=== PATIENT | male | born 1995 | race Hispanic/Latino ===

== ENCOUNTER 2019-06-09 08:56 | Emergency (ER) | payer SELFPAY ==
[2019-06-09] MEDS ORDERED: Ondansetron PF 4 MG/2 ML Vial ONE ×2 (09:15→13:09)
[2019-06-09] MEDS ORDERED: Morphine 4 MG/ML VIAL ONE (09:15)
[2019-06-09 10:35] LABS: Bilirubin Negative (Negative); Blood, Urine 3+ (Negative); Clarity Clear (Clear); Glucose, Urine (Dipstick) Normal (Negative); Leukocyte Negative Leu/uL (Negative); Nitrite Negative (Negative); Protein, Urine (Dipstick) 20 mg/dL (Neg-Trace); RBC/HPF Greater than 50 HPF (0-3); Squamous Epithelial 0-3 HPF (0-3); Urobilinogen Normal mg/dL (Less than 2)
--- NOTE | 2019-06-09 10:38 | CT ---
CT ABDOMEN WITHOUT CONTRAST; CT PELVIS WITHOUT CONTRAST: HISTORY: Right flank pain, radiating to the testicle. COMPARISON: None. FINDINGS: ABDOMEN Lung bases: Clear. Heart size: Normal heart size. No significant pericardial fluid. Aorta: Normal caliber. No periaortic fat stranding. Solid organs: Limited evaluation by the lack of IV contrast. Grossly no solid organ abnormality. Lymph nodes: No gastrohepatic, retrocrural or periportal lymphadenopathy. Gallbladder: Unremarkable. Mesentery: No mass, lymphadenopathy, free air or free fluid. Kidneys: Punctate, nonobstructing calculi in the right upper pole intrarenal collecting system, measu ring 1 to 2 mm. Mild dilatation of the right intrarenal collecting system and extrarenal collecting system with mild periureteral fat stranding. No evidence of an obstructing calculus. Correlate for a recently passed calculus. With regard to the left kidney, no evidence of obstructive uropathy. Alimentary canal: Limited evaluation by the lack of oral contrast. Multiple normal caliber small antoine l loops. Unremarkable ileocecal junction. Scattered fecal material in a nondistended, nondilated colon. Normal caliber appendix. PELVIS No mass, adenopathy, free air or free fluid. Unremarkable prostate gland. Urinary bladder: Questionable punctate calculus in the urinary bladder. Osseous structures: No lytic or blastic lesions. IMPRESSION: 1. Nonobstructing, 1 to 2 mm calculi in the right upper pole intrarenal collecting system. 2. Mild right-sided hydronephrosis and hydroureter without associated obstructing calculus. Correlate for a recently passed stone. Questionable 1 mm calculus in the posterior right urinary bladder (image 83, series 601). Transcribed Date/Time: 06/09/2019 10:49 AM
[2019-06-09 10:46] LABS: Bacteria/HPF 1+ HPF (None Seen); Yeast-Budding 1+ HPF (None Seen)
[2019-06-09 11:57] LABS: #Eosinphils 0.1 thou/uL (0.0-0.7); #Lymphocytes 1.2 thou/uL (1.20-3.40); #Monocytes 0.5 thou/uL (0.11-0.59); #Neutrophils 10.1 thou/uL (1.40-6.50); %Eosinophils 0.5 % (0.0-10.0); %Lymphocytes 9.7 % (21.0-51.0); %Monocytes 4.6 % (0.0-10.0); %Neutrophils 85.2 % (42.0-75.0); Hemoglobin 13.4 g/dL (14.0-18.0); Mean Corpuscular Hemoglobin 30.8 pg (27.0-31.0); Mean Corpuscular Volume 90.6 fL (78.0-98.0); Mean Platelet Volume 7.3 fL (7.4-10.4); Platelet Count 216 thou/uL (130-400); RBC Distribution Width 11.5 % (11.5-14.5); Red Blood Cell (RBC) Count 4.36 mill/uL (4.70-6.10); White Blood Cell (WBC) Count 11.8 thou/uL (4.8-10.8)
[2019-06-09 12:33] LABS: ALT (SGPT) 19 U/L (8-55); AST (SGOT) 14 U/L (5-34); Albumin 4.2 g/dL (3.5-5.0); Alkaline Phosphatase 41 U/L (40-110); Anion Gap 10 mmol/L (10-20); BUN (Urea Nitrogen) 8 mg/dL (8.9-20.6); Bilirubin, Total 0.2 mg/dL (0.2-1.2); Calc. Creatinine Clearance 0 mL/min (70-130); Calcium 8.7 mg/dL (7.8-10.44); Carbon Dioxide 26 mmol/L (22-29); Chloride 108 mmol/L (98-107); Estimated GFR-MDRD Greater than 90; Globulin 2.8 g/dL (2.4-3.5); Glucose 112 mg/dL (70-105); Potassium 3.8 mmol/L (3.5-5.1); Sodium 140 mmol/L (136-145)
== END 2019-06-09 13:15 | disposition home or self-care (01) ==
LOC: ERS 08:56
DX: N13.2 Hydronephrosis with renal and ureteral calculous obstruction (principal)
CPT/HCPCS: 36415; 74176; 80053; 81003; 81015; 85025; 96361; 96374; 96375; 96376; J2270; J2405